=== PATIENT | male | born 1965 | race Caucasian/White ===

== ENCOUNTER 2017-04-24 15:04 | Emergency (ER) | payer SELFPAY ==
[~2017-04-24] VITALS: Ht 180.3 cm; Wt 124.0 kg
[~2017-04-24 15:04] MED LIST: INDO50 PO; PERC5TAB12 PO
[2017-04-24 15:11] VITALS: BP 131/66; PULSE 107; RESP 16; TEMP 97.9; O2SAT 95
[2017-04-24] MEDS ORDERED: NAPR220C22 PO (15:24)
--- NOTE | 2017-04-24 15:30 | PD ---
HPI Chief Complaint: Musculoskeletal Complaint Time Seen by Provider: 15:26 Travel History International Travel<30 days: No Contact w/Intl Traveler<30days: No Traveled to known affect area: No History of Present Illness HPI Patient presents with concerns of a syncopal episode. States he was being evaluated at [facility] for left knee pain. States he received 2 injections in either buttock. Shortly thereafter he expects diaphoresis and syncope. Denies any chest pain shortness of breath urinary or bowel symptoms. Denies any history of seizures. Feels well now. PFSH Past Medical History Diminished Hearing: No Gout: Yes Influenza Vaccination: No Past Surgical History Surgical History: No Previous Surgery Oral Surgery: Yes Social History Alcohol Use: Yes (1-2 BEERS PER DAY) Tobacco Use: Yes (CHEWS TOBACCO) Substance Use: No Allergies-Medications (Allergen,Severity, Reaction): Coded Allergies: No Known Allergies (Verified Adverse Reaction, Unknown, 04/24/17) Reported Meds & Prescriptions Reported Meds & Active Scripts Active Reported Aleve (Naproxen Sodium) 220 Mg Capsule 220 Mg PO DIRECTED Review of Systems General / Constitutional: No: Fever Eyes: No: Visual changes HENT: No: Headaches Cardiovascular: No: Chest Pain or Discomfort Respiratory: No: Shortness of Breath Gastrointestinal: No: Abdominal Pain Genitourinary: No: Dysuria Musculoskeletal: No: Pain Skin: No Rash Neurologic: No: Weakness Psychiatric: No: Depression Endocrine: No: Polydipsia Hematologic/Lymphatic: No: Easy Bruising Physical Exam Narrative GENERAL: Well-nourished, well-developed patient. SKIN: Focused skin assessment warm/dry. HEAD: Normocephalic. EYES: No scleral icterus. No injection or drainage. NECK: Supple, trachea midline. No JVD or lymphadenopathy. CARDIOVASCULAR: Regular rate and rhythm without murmurs, gallops, or rubs. RESPIRATORY: Breath sounds equal bilaterally. No accessory muscle use. GASTROINTESTINAL: Abdomen soft, non-tender, nondistended. MUSCULOSKELETAL: No cyanosis, or edema. BACK: Nontender without obvious deformity. No CVA tenderness. Data Data Last Documented VS Vital Signs Date Time Temp Pulse Resp B/P (MAP) Pulse Ox O2 Delivery O2 Flow Rate FiO2 04/24/17 15:31 89 16 116/62 (80) 105 16 117/59 (78) 108 16 107/73 (84) 04/24/17 15:11 97.9 95 Orders Orders Orthostatic Vital Signs (04/24/17 15:26) MDM Medical Decision Making Medical Screen Exam Complete: Yes Emergency Medical Condition: Yes Differential Diagnosis Vasovagal episode, syncope, seizure, dizziness Narrative Course Assessment and plan discussed with patient and friend at bedside. Orthostatics within normal limits. Diagnosis Primary Impression: Vasovagal episode Patient Instructions: General Instructions Additional Instructions: Encouraged rest and fluids. Encouraged nonsteroidal anti-inflammatories and ice /elevation to joint. Crutches for comfort. Return to emergency room with any onset of new symptoms. Med/Other Pt SpecificInfo: Prescription(s) given Scripts Meloxicam (Meloxicam) 7.5 Mg Tab 7.5 MG PO BID for Arthritis Pain, #20 TAB 0 Refills Prov: Scotty Medina MD 04/24/17 Disposition: 01 DISCHARGE HOME Condition: Good Scotty Medina MD Apr 24, 2017 15:30
[2017-04-24 15:31] VITALS: BP_SYST 107; BP_SYST 116; BP_SYST 117; BP_DIAS 59; BP_DIAS 62; BP_DIAS 73; RESP 16
[2017-04-24] MEDS ORDERED: MELO7.5T27 PO (15:35)
== END 2017-04-24 15:55 | disposition home or self-care (01) ==
LOC: PHED 15:04
DX: R55 Syncope and collapse (principal); F17.220 Nicotine dependence, chewing tobacco, uncomplicated
CPT/HCPCS: 99283

== ENCOUNTER 2017-10-08 21:23 | Emergency (ER) | payer SELFPAY ==
[~2017-10-08 21:23] MED LIST changes: -INDO50 PO; +MELO7.5T27 PO; +NAPR220C22 PO; -PERC5TAB12 PO
[2017-10-08 21:33] VITALS: BP 119/66; PULSE 93; RESP 20; TEMP 98.1; O2SAT 95
--- NOTE | 2017-10-08 21:37 | PD ---
HPI Chief Complaint: Fall Time Seen by Provider: 21:37 Travel History International Travel<30 days: No Contact w/Intl Traveler<30days: No Traveled to known affect area: No History of Present Illness HPI 52-year-old male with no significant medical history presents to the emergency department following a syncopal episode. Patient was in his garage. He had been drinking alcohol today when he all of a sudden collapsed, falling backwards , striking his head on the ground. Patient tells me he does not remember the episode. He reports posterior head pain and right hand pain. States this is never happened to him before. He tells me he has no significant medical history. He has no other symptoms to report at this time. [facility] Past Medical History Medical History: Denies Significant Hx Diminished Hearing: No Gout: Yes Immunizations Current: Yes Past Surgical History Oral Surgery: Yes Social History Alcohol Use: Yes (1-2 BEERS PER DAY) Tobacco Use: Yes (CHEWS TOBACCO) Substance Use: No Allergies-Medications (Allergen,Severity, Reaction): Coded Allergies: No Known Allergies (Verified Adverse Reaction, Unknown, 10/08/17) Reported Meds & Prescriptions Reported Meds & Active Scripts Active No Active Prescriptions or Reported Medications Review of Systems Except as stated in HPI: all other systems reviewed are Neg Physical Exam Narrative GENERAL: Well-nourished male patient, lying in bed in no acute distress SKIN: Focused skin assessment warm/dry. 6 cm Y-shaped laceration to the posterior scalp. HEAD: Atraumatic. Normocephalic. EYES: Pupils equal and round. No scleral icterus. No injection or drainage. EOMI. ENT: No nasal bleeding or discharge. Mucous membranes pink and moist. NECK: Trachea midline. No JVD. No cervical spine tenderness. CARDIOVASCULAR: Regular rate and rhythm. No murmur appreciated. RESPIRATORY: No accessory muscle use. Diminished likely due to girth, to auscultation. Breath sounds equal bilaterally. GASTROINTESTINAL: Abdomen soft, non-tender, nondistended. Hepatic and splenic margins not palpable. MUSCULOSKELETAL: No obvious deformities. No clubbing. No cyanosis. No edema. Moves all extremities. Reports tenderness to the dorsal aspect of the right hand with palpation. NEUROLOGICAL: Awake and alert. No obvious cranial nerve deficits. Motor grossly within normal limits. Normal speech. Data Data Last Documented VS Vital Signs Date Time Temp Pulse Resp B/P (MAP) Pulse Ox O2 Delivery O2 Flow Rate FiO2 10/08/17 22:32 22 98 Room Air 10/08/17 21:33 98.1 93 Orders Orders Electrocardiogram (10/08/17 22:13) Complete Blood Count With Diff (10/08/17 22:13) Comprehensive Metabolic Panel (10/08/17 22:13) Magnesium (Mg) (10/08/17 22:13) Ckmb (Isoenzyme) Profile (10/08/17 22:13) Troponin I (10/08/17 22:13) Act Partial Throm Time (Ptt) (10/08/17 22:13) Prothrombin Time / Inr (Pt) (10/08/17 22:13) Urinalysis - C+S If Indicated (10/08/17 22:13) Chest, Single Ap (10/08/17 22:13) Ct Brain W/O Iv Contrast(Rout) (10/08/17 22:13) Ecg Monitoring (10/08/17 22:13) Iv Access Insert/Monitor (10/08/17 22:13) Oximetry (10/08/17 22:13) Sodium Chloride 0.9% Flush (Ns Flush) (10/08/17 22:15) Sodium Chlor 0.9% 1000 Ml Inj (Ns 1000 M (10/08/17 22:13) Alcohol (Ethanol) (10/08/17 22:25) MDM Medical Decision Making Medical Screen Exam Complete: Yes Emergency Medical Condition: Yes Medical Record Reviewed: Yes Differential Diagnosis Syncope versus intoxication versus intracranial hemorrhage versus CVA versus electrolyte abnormality Narrative Course 52-year-old male presents emergency department following a syncopal episode. Patient appears well. He does have a laceration to the posterior scalp. Workup is initiated. I have discussed the patient my attending physician Dr. Rees who will assume care and disposition the patient appropriately. Scripts No Active Prescriptions or Reported Meds Condition: Stable Zenaida Dan JAMIE October 08, 2017 21:37
[2017-10-08] MEDS ORDERED: SODIUM CHLOR 0.9% 1000 ML INJ 1,000 ML IV ONE (22:13)
[2017-10-08] MEDS ORDERED: SODIUM CHLORIDE 0.9% FLUSH 10 ML FLUSH IVF PRN (22:15)
[2017-10-08 22:32] VITALS: RESP 22; O2SAT 98
[2017-10-08 22:46] LABS: AUTOMATED NEUTROPHIL # 5.6 TH/MM3 (1.8-7.7); BASOPHIL % 0.5 % (0.0-2.0); EOSINOPHIL # 0.2 TH/MM3 (0-0.4); EOSINOPHIL % 2.2 % (0.0-4.0); HEMATOCRIT 43.7 % (39.0-51.0); HEMOGLOBIN 14.8 GM/DL (13.0-17.0); LYMPH % 29.7 % (9.0-44.0); LYMPHOCYTE # 2.8 TH/MM3 (1.0-4.8); MEAN CELL VOLUME 86.3 FL (80.0-100.0); MEAN CORPUSCULAR HEMOGLOBIN 29.3 PG (27.0-34.0); MEAN CORPUSCULAR HGB CONC 33.9 % (32.0-36.0); MEAN PLATELET VOLUME 6.5 FL (7.0-11.0); MONO % 8.5 % (0.0-8.0); MONOCYTE # 0.8 TH/MM3 (0-0.9); NEUT % 59.1 % (16.0-70.0); PLATELET COUNT 283 TH/MM3 (150-450); RED BLOOD COUNT 5.06 MIL/MM3 (4.50-5.90); RED CELL DISTRIBUTION WIDTH 13.1 % (11.6-17.2); WHITE BLOOD COUNT 9.5 TH/MM3 (4.0-11.0)
[2017-10-08 22:59] LABS: ALBUMIN 4.1 GM/DL (3.4-5.0); ALT (GPT) 34 U/L (12-78); AST (GOT) 25 U/L (15-37); BICARBONATE 25.3 MEQ/L (21.0-32.0); BLOOD UREA NITROGEN 14 MG/DL (7-18); CALCIUM 8.9 MG/DL (8.5-10.1); CHLORIDE 102 MEQ/L (98-107); CREATININE 1.08 MG/DL (0.60-1.30); GLOMERULAR FILTRATION RATE 72 ML/MIN (>89); GLUCOSE,RANDOM 101 MG/DL (74-106); MAGNESIUM 1.9 MG/DL (1.5-2.5); PROTHROMBIN TIME - PATIENT 10.6 SEC (9.8-11.6); SODIUM (NA) 139 MEQ/L (136-145)
[2017-10-08 23:04] LABS: ALKALINE PHOSPHATASE 62 U/L (45-117); TOTAL BILIRUBIN ADULT 0.5 MG/DL (0.2-1.0); TOTAL PROTEIN 7.9 GM/DL (6.4-8.2); TROPONIN I LESS THAN 0.02 NG/ML (0.02-0.05)
--- NOTE | 2017-10-08 23:06 | RADRPT ---
EXAM DATE/TIME: 10/08/2017 22:32 [facility] COMPARISON: No previous studies available for comparison. INDICATIONS : Syncope. Patient passed out today. MEDICAL HISTORY : Unobtainable. SURGICAL HISTORY : Unobtainable. ENCOUNTER: Initial ACUITY: 1 day PAIN SCORE: 0/10 LOCATION: Bilateral chest FINDINGS: The heart is mildly enlarged. The lungs are clear. No pulmonary vascular congestion is noted CONCLUSION: Mild cardiomegaly. No focal infiltrate or pulmonary vascular congestion. Garth Gomez MD on October 08, 2017 at 23:01 Board Certified Radiologist. This report was verified electronically.
--- NOTE | 2017-10-08 23:09 | RADRPT ---
EXAM DATE/TIME: 10/08/2017 22:44 [facility] COMPARISON: No previous studies available for comparison. INDICATIONS : Trauma; fall. RADIATION DOSE: 36.89 CTDIvol (mGy) MEDICAL HISTORY : None SURGICAL HISTORY : None. ENCOUNTER: Initial ACUITY: 1 day PAIN SCALE: 6/10 LOCATION: cranial TECHNIQUE: Multiple contiguous axial images were obtained of the head. Using automated exposure control and adj ustment of the mA and/or kV according to patient size, radiation dose was kept as low as reasonably a chievable to obtain optimal diagnostic quality images. DICOM format image data is available electro nically for review and comparison. FINDINGS: CEREBRUM: The ventricles are normal for age. No evidence of midline shift, mass lesion, hemorrhage or acute in farction. No extra-axial fluid collections are seen. POSTERIOR FOSSA: The cerebellum and brainstem are intact. The 4th ventricle is midline. The cerebellopontine angle i s unremarkable. EXTRACRANIAL: The visualized portion of the orbits is intact. Small subgaleal hematoma is noted along the left post erior parietal skull. Small fluid level is noted within left maxillary sinus. Mucosal thickening is n oted within the ethmoid air cells bilaterally. SKULL: The calvaria is intact. No evidence of skull fracture. CONCLUSION: No acute intracranial abnormality. Small subgaleal hematoma along the left posterior parietal skull. Small fluid level within the left maxillary sinus. Mucosal thickening within the ethm oid air cells bilaterally. Garth Gomez MD on October 08, 2017 at 23:06 Board Certified Radiologist. This report was verified electronically.
--- NOTE | 2017-10-08 23:41 | RADRPT ---
EXAM DATE/TIME: 10/08/2017 22:44 [facility] COMPARISON: No previous studies available for comparison. INDICATIONS : Trauma; fall. RADIATION DOSE: 34.59 CTDIvol (mGy) MEDICAL HISTORY : None SURGICAL HISTORY : None. ENCOUNTER: Initial ACUITY: 1 day PAIN SCALE: 0/10 LOCATION: neck TECHNIQUE: Volumetric scanning of the cervical spine was performed. Multiplanar reconstructions in the sagittal, coronal and oblique axial planes were performed. Using automated exposure control and adjustment o f the mA and/or kV according to patient size, radiation dose was kept as low as reasonably achievable to obtain optimal diagnostic quality images. DICOM format image data is available electronically f or review and comparison. FINDINGS: Cervical spine alignment is satisfactory. There is no evidence of cervical spine fracture. There is m ild degenerative change present with disc space narrowing most significantly at C5-6 and C6-7 with sm all ventral and dorsal endplate osteophytes present. Slight degree of bony canal and bilateral forami nal compromise is present. There is no evidence of paraspinal hematoma. CONCLUSION: No acute bony injury in the cervical spine Alex Peralta MD on October 08, 2017 at 23:38 Board Certified Radiologist. This report was verified electronically.
--- NOTE | 2017-10-08 23:44 | RADRPT ---
EXAM DATE/TIME: 10/08/2017 22:50 [facility] COMPARISON: No previous studies available for comparison. INDICATIONS : Pain post fall. MEDICAL HISTORY : Gout. SURGICAL HISTORY : None. ENCOUNTER: Initial ACUITY: 1 day PAIN SCORE: 2/10 LOCATION: Right Hand. FINDINGS: There is a slightly displaced spiral fracture involving the base of the third metacarpal. The hand an d wrist are otherwise intact. There is mild arthritic change. No evidence of dislocation. Mineralizat ion is normal. CONCLUSION: Slightly displaced spiral fracture of the base of the third metacarpal Alex Peralta MD on October 08, 2017 at 23:40 Board Certified Radiologist. This report was verified electronically.
--- NOTE | 2017-10-08 23:58 | PD ---
Physical Exam Narrative Patient was seen by me and my inventory control assistant. Data Data Last Documented VS Vital Signs Date Time Temp Pulse Resp B/P (MAP) Pulse Ox O2 Delivery O2 Flow Rate FiO2 10/08/17 22:32 22 98 Room Air 10/08/17 21:33 98.1 93 Orders Orders Electrocardiogram (10/08/17 22:13) Complete Blood Count With Diff (10/08/17 22:13) Comprehensive Metabolic Panel (10/08/17 22:13) Magnesium (Mg) (10/08/17 22:13) Ckmb (Isoenzyme) Profile (10/08/17 22:13) Troponin I (10/08/17 22:13) Act Partial Throm Time (Ptt) (10/08/17 22:13) Prothrombin Time / Inr (Pt) (10/08/17 22:13) Urinalysis - C+S If Indicated (10/08/17 22:13) Chest, Single Ap (10/08/17 22:13) Ct Brain W/O Iv Contrast(Rout) (10/08/17 22:13) Ecg Monitoring (10/08/17 22:13) Iv Access Insert/Monitor (10/08/17 22:13) Oximetry (10/08/17 22:13) Sodium Chloride 0.9% Flush (Ns Flush) (10/08/17 22:15) Sodium Chlor 0.9% 1000 Ml Inj (Ns 1000 M (10/08/17 22:13) Alcohol (Ethanol) (10/08/17 22:25) Ct Cerv Spine W/O Contrast (10/08/17 ) Hand, Complete ([id number]) (10/08/17 ) CKMB (10/08/17 22:30) CKMB% (10/08/17 22:30) Labs Laboratory Tests Test 10/08/17 22:30 White Blood Count 9.5 TH/MM3 Red Blood Count 5.06 MIL/MM3 Hemoglobin 14.8 GM/DL Hematocrit 43.7 % Mean Corpuscular Volume 86.3 FL Mean Corpuscular Hemoglobin 29.3 PG Mean Corpuscular Hemoglobin Concent 33.9 % Red Cell Distribution Width 13.1 % Platelet Count 283 TH/MM3 Mean Platelet Volume 6.5 FL Neutrophils (%) (Auto) 59.1 % Lymphocytes (%) (Auto) 29.7 % Monocytes (%) (Auto) 8.5 % Eosinophils (%) (Auto) 2.2 % Basophils (%) (Auto) 0.5 % Neutrophils # (Auto) 5.6 TH/MM3 Lymphocytes # (Auto) 2.8 TH/MM3 Monocytes # (Auto) 0.8 TH/MM3 Eosinophils # (Auto) 0.2 TH/MM3 Basophils # (Auto) 0.0 TH/MM3 CBC Comment DIFF FINAL Differential Comment Prothrombin Time 10.6 SEC Prothromb Time International Ratio 1.0 RATIO Activated Partial Thromboplast Time 22.1 SEC Blood Urea Nitrogen 14 MG/DL Creatinine 1.08 MG/DL Random Glucose 101 MG/DL Total Protein 7.9 GM/DL Albumin 4.1 GM/DL Calcium Level 8.9 MG/DL Magnesium Level 1.9 MG/DL Alkaline Phosphatase 62 U/L Aspartate Amino Transf (AST/SGOT) 25 U/L Alanine Aminotransferase (ALT/SGPT) 34 U/L Total Bilirubin 0.5 MG/DL Sodium Level 139 MEQ/L Potassium Level 3.7 MEQ/L Chloride Level 102 MEQ/L Carbon Dioxide Level 25.3 MEQ/L Anion Gap 12 MEQ/L Estimat Glomerular Filtration Rate 72 ML/MIN Total Creatine Kinase 141 U/L Creatine Kinase MB 1.6 NG/ML Troponin I LESS THAN 0.02 NG/ML [facility] Medical Record Reviewed: Yes Supervised Visit with ERICA: Yes Interpretation(s) Last Impressions Head CT 10/08/172212 Signed Impressions: Service Date/Time: Sunday, October 08, 2017 22:44 - CONCLUSION: No acute intracranial abnormality. Small subgaleal hematoma along the left posterior parietal skull. Small fluid level within the left maxillary sinus. Mucosal thickening within the ethmoid air cells bilaterally. Garth Gomez MD Chest X-Ray 10/08/172212 Signed Impressions: Service Date/Time: Sunday, October 08, 2017 22:32 - CONCLUSION: Mild cardiomegaly. No focal infiltrate or pulmonary vascular congestion. Garth Gomez MD Cervical Spine CT 10/08/17 0000 Signed Impressions: Service Date/Time: Sunday, October 08, 2017 22:44 - CONCLUSION: No acute bony injury in the cervical spine Alex Peralta MD 23:55 PM. CBC within normal limits. CMP within normal limits. Cardiac enzymes are normal. Diagnosis Primary Impression: Syncope Qualified Codes: R55 - Syncope and collapse Additional Impressions: Closed head injury Qualified Codes: S09.90XA - Unspecified injury of head, initial encounter Scalp laceration Qualified Codes: S01.01XA - Laceration without foreign body of scalp, initial encounter Patient Instructions: General Instructions Additional Instruction: Wound care daily. Head trauma instructions given. Staple removal in 10 days. Med/Other Pt SpecificInfo: No Change to Meds Scripts No Active Prescriptions or Reported Meds Disposition: 01 DISCHARGE HOME Condition: Stable Hilario Rees MD October 08, 2017 23:58
[2017-10-09 04:30] VITALS: BP 127/71; PULSE 88; RESP 18; O2SAT 99
--- NOTE | 2017-10-09 12:29 | EKG ---
Date Performed: 10/08/2017 Time Performed: 23:03:53 PTAGE: 52 years EKG: Sinus rhythm NORMAL ECG PREVIOUS TRACING : 10/31/2007 00.30 Since the previous tracing, no significant change noted DOCTOR: Sherif Eduardo Interpretating Date/Time 10/09/2017 12:27:46
== END 2017-10-09 04:54 | disposition home or self-care (01) ==
LOC: NEPE 21:23
DX: R55 Syncope and collapse (principal); S09.90XA Unspecified injury of head, initial encounter; S01.01XA Laceration without foreign body of scalp, initial encounter; S00.03XA Contusion of scalp, initial encounter; S62.312A Displaced fracture of base of third metacarpal bone, right hand, initial encounter for closed fracture; I51.7 Cardiomegaly; F17.220 Nicotine dependence, chewing tobacco, uncomplicated; W22.8XXA Striking against or struck by other objects, initial encounter; Y92.008 Other place in unspecified non-institutional (private) residence as the place of occurrence of the external cause
CPT/HCPCS: 12002; 70450; 71045; 72125; 73130; 80053; 80307; 82550; 82552; 83735; 84484; 85025; 85610; 85730; 93005; 96360; 99285; J7030

== ENCOUNTER 2017-10-25 11:22 | Emergency (ER) | payer SELFPAY ==
[~2017-10-25] VITALS: Ht 180.3 cm; Wt 122.0 kg
[2017-10-25 11:39] VITALS: BP 136/86; PULSE 76; RESP 16; TEMP 98.6
--- NOTE | 2017-10-25 12:38 | PD ---
HPI Chief Complaint: Wound/Suture/Staple Re-Check Time Seen by Provider: 12:19 Travel History International Travel<30 days: No Contact w/Intl Traveler<30days: No Traveled to known affect area: No History of Present Illness HPI 52-year-old male presents the ED for staple removal. Patient states he had a syncopal episode on 10/08, stepan were placed at that time. He denies any discharge, warmth, redness, fevers or chills. Denies any new injury. PFSH Past Medical History Diminished Hearing: No Gout: Yes Immunizations Current: Yes Past Surgical History Oral Surgery: Yes Social History Alcohol Use: Yes (1-2 BEERS PER DAY) Tobacco Use: Yes (CHEWS TOBACCO) Substance Use: No Allergies-Medications (Allergen,Severity, Reaction): Coded Allergies: No Known Allergies (Verified Adverse Reaction, Unknown, 10/25/17) Reported Meds & Prescriptions Reported Meds & Active Scripts Active No Active Prescriptions or Reported Medications Review of Systems Except as stated in HPI: all other systems reviewed are Neg Physical Exam Narrative GENERAL: Well-nourished, well-developed pleasant white male no acute distress. SKIN: Focused skin assessment warm/dry. [address] over a well healing posterior scalp laceration without signs of infection. HEAD: Normocephalic. EYES: No scleral icterus. No injection or drainage. NECK: Supple, trachea midline. No JVD or lymphadenopathy. CARDIOVASCULAR: Regular rate and rhythm without murmurs, gallops, or rubs. RESPIRATORY: Breath sounds equal bilaterally. No accessory muscle use. GASTROINTESTINAL: Abdomen soft, non-tender, nondistended. MUSCULOSKELETAL: No cyanosis, or edema. BACK: Nontender without obvious deformity. No CVA tenderness. Data Data Last Documented VS Vital Signs Date Time Temp Pulse Resp B/P (MAP) Pulse Ox O2 Delivery O2 Flow Rate FiO2 10/25/17 11:39 98.6 76 16 136/86 (103) Orders Orders Ed Discharge Order (10/25/17 12:35) MDM Medical Decision Making Medical Screen Exam Complete: Yes Emergency Medical Condition: Yes Differential Diagnosis Wound recheck versus wound infection versus staple removals versus other Narrative Course 52-year-old male presents to the ED for staple removal. Patient had stepan placed on 10/08 after a syncopal episode. He reports no problems with the wound. Vitals reviewed. On exam wound is well healing without signs of infection. 6 stepan were removed without difficulty. No other stepan were visualized in the wound. Patient's instructed to use sunscreen to avoid darkening of the scar , follow with the primary care provider. He is stable and discharged home. Diagnosis Primary Impression: Encounter for staple removal Referrals: Primary Care Physician Additional Instructions: Wear sunscreen to prevent darkening of the scar. Follow with your primary care provider. Return to the ED for any urgent or emergent medical condition. Scripts No Active Prescriptions or Reported Meds Disposition: 01 DISCHARGE HOME Condition: Stable Yana Robert October 25, 2017 12:38
== END 2017-10-25 12:47 | disposition home or self-care (01) ==
LOC: NEPK 11:22
DX: S01.01XD Laceration without foreign body of scalp, subsequent encounter (principal); X58.XXXD Exposure to other specified factors, subsequent encounter; Z48.02 Encounter for removal of sutures
CPT/HCPCS: 99281